=== PATIENT | female | born 1985 | race Caucasian/White ===

== ENCOUNTER 2021-12-02 10:31 | Emergency (ER) | payer BC ==
[2021-12-02 10:39] VITALS: TEMP 98.1
[2021-12-02] MEDS ORDERED: SODIUM CHLORIDE 0.9% 1,000 ML IV STA (11:06)
[2021-12-02] MEDS ORDERED: MECLIZINE 12.5 MG TAB PO STA (11:06)
--- NOTE | 2021-12-02 11:15 | ED ---
General Adult HPI - General Chief complaint: Dizziness Stated complaint: Neck Pain/Dizziness Time Seen by Provider: 12/02/21 10:58 Source: patient, family, RN notes reviewed, old records reviewed Mode of arrival: ambulatory Limitations: no limitations - History of Present Illness Initial comments: This is a well-appearing 36-year-old female, presents with complaints of 10 days of intermittent pulsating occipital and left temporal headache with dizziness. Patient states she woke up 10 days ago with her head hanging off the bed slightly disoriented. The pain was intermittent pulsating in nature. She denies any injury. Denies any nausea vomiting diarrhea or fevers. She is not taking medication and daily basis. She states that 2 days ago she was shopping and became very dizzy with pulsating headache. She denies any blurred vision but does state that she has light sensitivity. No family history of aneurysm or stroke. Is a nonsmoker. -: days(s) (10) Location: head, neck Severity scale (1-10): 3 Quality: sharp Consistency: intermittent Improves with: none Worsens with: movement Associated Symptoms: headaches (occipital and Left baptism pulsating), other (Dizziness) - Related Data Previous Rx's Medication Instructions Recorded Aspirin [Rush Aspirin EC] 81 mg PO DAILY 30 Days #30 tab 12/02/21 Meclizine [Antivert] 25 mg PO Q8H PRN #15 tab 12/02/21 Ticagrelor [Brilinta] 90 mg PO BID 30 Days #60 tab 12/02/21 Allergies Allergy/AdvReac Type Severity Reaction Status Date / Time No Known Allergies Allergy Verified 12/02/21 10:38 Review of Systems ROS Statement: Those systems with pertinent positive or pertinent negative responses have been documented in the HPI. ROS Other: All systems not noted in ROS Statement are negative. Past Medical History Past Medical History: No Reported History History of Any Multi-Drug Resistant Organisms: None Reported Past Surgical History: No Surgical Hx Reported Past Psychological History: No Psychological Hx Reported Smoking Status: Never smoker Past Alcohol Use History: None Reported Past Drug Use History: None Reported General Exam Limitations: no limitations General appearance: alert, in no apparent distress Head exam: Present: atraumatic, normocephalic, normal inspection Eye exam: Present: normal appearance, PERRL, EOMI. Absent: scleral icterus, conjunctival injection, nystagmus, periorbital swelling, periorbital tenderness ENT exam: Present: normal exam, normal oropharynx, mucous membranes moist, TM's normal bilaterally Neck exam: Present: normal inspection, full ROM. Absent: tenderness, meningismus, lymphadenopathy, thyromegaly Respiratory exam: Present: normal lung sounds bilaterally. Absent: respiratory distress, wheezes, rales, rhonchi, stridor, chest wall tenderness, accessory muscle use, decreased breath sounds Cardiovascular Exam: Present: regular rate, normal rhythm, normal heart sounds. Absent: JVD Extremities exam: Present: normal inspection, normal capillary refill. Absent: pedal edema Back exam: Present: normal inspection, full ROM. Absent: tenderness, CVA tenderness (R), CVA tenderness (L), rash noted Neurological exam: Present: alert, oriented X3, CN II-XII intact. Absent: motor sensory deficit Expanded Patient oriented to: Present: person, place, time Speech: Present: fluid speech Cranial nerves: EOM's Intact: Normal, Gag Reflex: Normal, Tongue Deviation: Normal Cerebellar function: Heel to [place]: Normal Motor strength exam: RUE: 5, LUE: 5, RLE: 5, LLE: 5 Eye Response: (4) open spontaneously Motor Response: (6) obeys commands Verbal Response: (5) oriented Lizet Total: 15 (Rapid alternating hand movements intact) Psychiatric exam: Present: normal affect, normal mood, anxious Skin exam: Present: warm, dry, intact, normal color. Absent: rash, cyanosis, diaphoretic, petechiae, pallor Course Vital Signs 12/02/21 12/02/21 12/02/21 10:33 13:10 15:43 Temperature 98.1 F Pulse Rate 89 80 Respiratory 18 18 16 Rate Blood Pressure 125/70 120/61 115/55 O2 Sat by Pulse 99 98 Oximetry - Reevaluation(s) Reevaluation #1: 12/02/21 13:27 Patient states that she is feeling much better after the Antivert, no longer has dizziness. She states that she does still have some neck pain on the left side. Time: 13:27 Reevaluation #2: 12/02/21 15:[address] Ng who states patient can follow-up in the office in [place] next week. He suggested patient be placed on 81 mg of aspirin daily along with Brilinta 90 mg twice a day. Time: 15:00 EKG Findings - EKG Results: EKG: sinus rhythm (Ventricular rate 87, OH interval 0.153, QRS 0.92, QTC 0.384) Medical Decision Making - Medical Decision Making 28-year-old female presents with 10 days of intermittent pulsating occipital and left temporal headache with dizziness. She denies nausea vomiting diarrhea or fevers. She denies any visual changes but does have sensitivity to light. There are no focal neurological deficits. CT angiogram neck shows an occluded distal left vertebral artery of uncertain clinical significance and filling defect of the basal artery dominant right vertebral artery. There is no significant focal stenosis or aneurysm in the posterior circulation. CBC and electrolytes are unremarkable. Urinalysis is clear. Vital signs are stable patient states that the dizziness has resolved after the Antivert. I did speak with Dr. Villatoro with neurology who recommended neurovascular. I did speak with Dr Ng who recommended patient be placed on Aspirin 81 milligrams daily along with Brilinta 90 mg twice a day and follow-up in the [place] office for evaluation and possible angiogram next week. I also prescribed patient Antivert to take as needed for dizziness. She was also instructed not drinking alcohol or drive a vehicle until evaluated by neurovascular. Patient is agreeable to this plan of care. She was directed to return to the emergency room with any new or worsening symptoms. Vital signs are stable at discharge. Case discussed with Dr. Aguirre. - Lab Data Result diagrams: 12/02/21 11:12 12/02/21 11:12 Lab Results 12/02/21 12/02/21 12/02/21 Range/Units 11:12 11:12 11:12 WBC 9.0 (3.8-10.6) k/uL RBC 4.49 (3.80-5.40) m/uL Hgb 13.4 (11.4-16.0) gm/dL Hct 41.3 (34.0-46.0) % MCV 91.8 (80.0-100.0) fL MCH 29.9 (25.0-35.0) pg MCHC 32.6 (31.0-37.0) g/dL RDW 12.7 (11.5-15.5) % Plt Count 320 (150-450) k/uL MPV 7.4 Neutrophils % 82 % Lymphocytes % 12 % Monocytes % 3 % Eosinophils % 1 % Basophils % 1 % Neutrophils # 7.4 (1.3-7.7) k/uL Lymphocytes # 1.1 (1.0-4.8) k/uL Monocytes # 0.3 (0-1.0) k/uL Eosinophils # 0.1 (0-0.7) k/uL Basophils # 0.1 (0-0.2) k/uL PT 9.7 (9.0-12.0) sec INR 0.9 (<1.2) Sodium 137 (137-145) mmol/L Potassium 4.4 (3.5-5.1) mmol/L Chloride 105 (98-107) mmol/L Carbon Dioxide 25 (22-30) mmol/L Anion Gap 7 mmol/L BUN 13 (7-17) mg/dL Creatinine 0.62 (0.52-1.04) mg/dL Est GFR (CKD-EPI)AfAm >90 (>60 ml/min/1.73 sqM) Est GFR (CKD-EPI)NonAf >90 (>60 ml/min/1.73 sqM) Glucose 108 H (74-99) mg/dL Calcium 9.6 (8.4-10.2) mg/dL Total Bilirubin 0.4 (0.2-1.3) mg/dL AST 21 (14-36) U/L ALT 13 (4-34) U/L Alkaline Phosphatase 59 (38-126) U/L Troponin I (0.000-0.034) ng/mL Total Protein 7.2 (6.3-8.2) g/dL Albumin 4.5 (3.5-5.0) g/dL Urine Color Urine Appearance (Clear) Urine pH (5.0-8.0) Ur Specific [place] (1.001-1.035) Urine Protein (Negative) Urine Glucose (UA) (Negative) Urine Ketones (Negative) Urine Blood (Negative) Urine Nitrite (Negative) Urine Bilirubin (Negative) Urine Urobilinogen (<2.0) mg/dL Ur Leukocyte Esterase (Negative) Urine RBC (0-5) /hpf Urine WBC (0-5) /hpf Ur Squamous Epith Cells (0-4) /hpf Urine Bacteria (None) /hpf 12/02/21 12/02/21 Range/Units 11:12 13:07 WBC (3.8-10.6) k/uL RBC (3.80-5.40) m/uL Hgb (11.4-16.0) gm/dL Hct (34.0-46.0) % MCV (80.0-100.0) fL MCH (25.0-35.0) pg MCHC (31.0-37.0) g/dL RDW (11.5-15.5) % Plt Count (150-450) k/uL MPV Neutrophils % % Lymphocytes % % Monocytes % % Eosinophils % % Basophils % % Neutrophils # (1.3-7.7) k/uL Lymphocytes # (1.0-4.8) k/uL Monocytes # (0-1.0) k/uL Eosinophils # (0-0.7) k/uL Basophils # (0-0.2) k/uL PT (9.0-12.0) sec INR (<1.2) Sodium (137-145) mmol/L Potassium (3.5-5.1) mmol/L Chloride (98-107) mmol/L Carbon Dioxide (22-30) mmol/L Anion Gap mmol/L BUN (7-17) mg/dL Creatinine (0.52-1.04) mg/dL Est GFR (CKD-EPI)AfAm (>60 ml/min/1.73 sqM) Est GFR (CKD-EPI)NonAf (>60 ml/min/1.73 sqM) Glucose (74-99) mg/dL Calcium (8.4-10.2) mg/dL Total Bilirubin (0.2-1.3) mg/dL AST (14-36) U/L ALT (4-34) U/L Alkaline Phosphatase (38-126) U/L Troponin I <0.012 (0.000-0.034) ng/mL Total Protein (6.3-8.2) g/dL Albumin (3.5-5.0) g/dL Urine Color Light Yellow Urine Appearance Clear (Clear) Urine pH 6.5 (5.0-8.0) Ur Specific [place] 1.021 (1.001-1.035) Urine Protein Negative (Negative) Urine Glucose (UA) Negative (Negative) Urine Ketones Negative (Negative) Urine Blood Negative (Negative) Urine Nitrite Negative (Negative) Urine Bilirubin Negative (Negative) Urine Urobilinogen <2.0 (<2.0) mg/dL Ur Leukocyte Esterase Trace H (Negative) Urine RBC 1 (0-5) /hpf Urine WBC 1 (0-5) /hpf Ur Squamous Epith Cells 2 (0-4) /hpf Urine Bacteria Occasional H (None) /hpf Disposition Clinical Impression: Vertebral artery occlusion, Dizziness Disposition: HOME SELF-CARE Condition: Good Instructions (If sedation given, give patient instructions): Dizziness (ED) Additional Instructions: Take 81 mg of aspirin a day, take Brilinta 90 mg twice a day as prescribed. You can also take Antivert for dizziness as directed. Do not drive or operate any machinery or drink alcohol when on these medications. Return to the emergency room if any new or concerning symptoms including increased pain, inability to ambulate or persistent nausea vomiting Call Saturday for an appointment with Dr. Ng in the [place] office [address] [place] [id number] Prescriptions: Meclizine [Antivert] 25 mg PO Q8H PRN #15 tab PRN Reason: Vertigo Ticagrelor [Brilinta] 90 mg PO BID 30 Days #60 tab Aspirin [Rush Aspirin EC] 81 mg PO DAILY 30 Days #30 tab Is patient prescribed a controlled substance at d/c from ED?: No Referrals: Leena Mendenhall MD [Primary Care Provider] - 1-2 days Christ Ng MD [STAFF PHYSICIAN] - 1-2 days Time of Disposition: 15:28
[2021-12-02 11:25] LABS: Basophils # (A) 0.1 k/uL (0-0.2); Basophils % (A) 1 %; Eosinophils # (A) 0.1 k/uL (0-0.7); Eosinophils % (A) 1 %; HCT 41.3 % (34.0-46.0); HGB 13.4 gm/dL (11.4-16.0); Lymphocytes # (A) 1.1 k/uL (1.0-4.8); Lymphocytes % (A) 12 %; MCH 29.9 pg (25.0-35.0); MCHC 32.6 g/dL (31.0-37.0); MCV 91.8 fL (80.0-100.0); Mean Platelet Volume 7.4; Monocytes # (A) 0.3 k/uL (0-1.0); Monocytes % (A) 3 %; Neutrophils # (A) 7.4 k/uL (1.3-7.7); Neutrophils % (A) 82 %; Platelet Count 320 k/uL (150-450); RBC 4.49 m/uL (3.80-5.40); RDW 12.7 % (11.5-15.5)
[2021-12-02 11:32] LABS: ALT 13 U/L (4-34); AST 21 U/L (14-36); African American GFR (CKD) >90 (>60 ml/min/1.73 sqM); Albumin 4.5 g/dL (3.5-5.0); Alkaline Phosphatase 59 U/L (38-126); Anion Gap 7 mmol/L; Blood Urea Nitrogen 13 mg/dL (7-17); Calcium 9.6 mg/dL (8.4-10.2); Carbon Dioxide 25 mmol/L (22-30); Chloride 105 mmol/L (98-107); Glucose 108 mg/dL (74-99); Non-African American GFR(CKD) >90 (>60 ml/min/1.73 sqM); Potassium 4.4 mmol/L (3.5-5.1); Sodium 137 mmol/L (137-145); Total Bilirubin 0.4 mg/dL (0.2-1.3); Total Protein 7.2 g/dL (6.3-8.2)
[2021-12-02 11:35] LABS: INR 0.9 (<1.2); Prothrombin Time 9.7 sec (9.0-12.0)
--- NOTE | 2021-12-02 11:53 | XR ---
EXAMINATION TYPE: XR chest 2V DATE OF EXAM: 12/02/2021 COMPARISON: NONE HISTORY: Dizziness. TECHNIQUE: Frontal and lateral views of the chest are obtained. FINDINGS: There is no suspicious focal air space opacity, pleural effusion, or pneumothorax seen. T he cardiac silhouette size is within normal limits. The osseous structures are intact. IMPRESSION: No acute process.
--- NOTE | 2021-12-02 12:41 | CT ---
EXAMINATION TYPE: CT angio head neck DATE OF EXAM: 12/02/2021 HISTORY: neck pain, dizziness, near syncope COMPARISON: None. CT DLP: 370.4 mGycm. Automated Exposure Control for Dose Reduction was Utilized. TECHNIQUE: CTA scan of the head and neck are performed with IV Contrast, patient injected with 65 mL of Isovue 370, axial images are obtained, coronal and sagittal reformatted images are reviewed. 3D r econstructed images are created on an independent workstation and reviewed. FINDINGS: Carotid/Vascular Structures: Normal 3 vessel origin from aortic arch. No significant plaque or stenos is. Normal origin right common carotid artery from the right brachiocephalic artery. No significant p laque or stenosis in the common or internal carotid arteries bilaterally including at the level of ca rotid bulbs. Patent external carotid arteries bilaterally without significant stenosis. There is occlusion of smaller caliber distal left vertebral artery with suspected some retrograde alok ling. The right vertebral artery is patent and dominant filling the basilar artery. Patent bilateral posterior communicating arteries are seen. No significant focal stenosis or aneurysm in the posterior circulation. Hypoplastic right P1 segment but filling is obtained by patent right posterior communic ating artery. Normal variant. Images of the anterior circulation shows patent anterior communicating artery. There is no significan t focal stenosis or aneurysm identified. Other: Scattered thyroid nodules are present. Consider nonemergent thyroid ultrasound follow-up to fu rther evaluate. IMPRESSION: Occluded distal left vertebral artery of uncertain clinical significance as there is fill ing of the basilar artery by the dominant right vertebral artery otherwise unremarkable study. NASCET criteria was used in interpretation of this exam?
[2021-12-02 13:11] VITALS: PULSE 80
[2021-12-02 13:24] LABS: Appearance,Urine Clear (Clear); Bacteria,Urine Occasional /hpf; Bilirubin,Urine Negative (Negative); Blood,Urine Negative (Negative); Color,Urine Light Yellow; Glucose,Urine (UA) Negative (Negative); Ketones,Urine Negative (Negative); Leukocyte Esterase,Urine Trace (Negative); Nitrite,Urine Negative (Negative); PH, Urine 6.5 (5.0-8.0); Protein,Urine Negative (Negative); RBC,Urine 1 /hpf (0-5); Specific Gravity,Urine 1.021 (1.001-1.035); Squamous Epithelial Cell,Urine 2 /hpf (0-4); Urobilinogen,Urine <2.0 mg/dL (<2.0); WBC,Urine 1 /hpf (0-5)
[2021-12-02] MEDS ORDERED: TICAGRELOR 90 MG TAB PO STA (15:15)
[2021-12-02] MEDS ORDERED: ASPIRIN 81 MG PO STA (15:15)
[2021-12-02 15:44] VITALS: BP 115/55; RESP 16
== END 2021-12-02 15:43 | disposition home or self-care (01) ==
LOC: MERGE 10:31 → SUPCPDRO 10:31 → EC 10:31
DX: I65.02 Occlusion and stenosis of left vertebral artery (principal); R42 Dizziness and giddiness
CPT/HCPCS: 36415; 93005; 80053; 84484; 85025; 85610; 81001; 71046; 70496; 70498; 99284; 96360; Q9967